=== PATIENT | female | born 1990 | race Caucasian/White ===

== ENCOUNTER → 2016-07-27 | Outpatient (CLI) | payer SELFPAY ==
[~2016-07-27] MED LIST: ZOLOFT100 M1 PO
== END | disposition short-term general hospital (02) ==
LOC: CLENT 10:24
DX: H91.21 Sudden idiopathic hearing loss, right ear (principal); H93.11 Tinnitus, right ear; G43.109 Migraine with aura, not intractable, without status migrainosus; D68.51 Activated protein C resistance; F32.9 Major depressive disorder, single episode, unspecified; Z96.22 Myringotomy tube(s) status